=== PATIENT | male | born 2000 | race Caucasian/White ===

== ENCOUNTER → 2025-05-07 09:51 | Outpatient (REF) | payer OTHER, SELFPAY | LOC: PAVMRI 09:51 | PROVIDERS: ATTENDING PHYSICIAN Nurse Practitioner Adult Health | DX: Q28.3 Other malformations of cerebral vessels (principal); Z82.49 Family history of ischemic heart disease and other diseases of the circulatory system | CPT/HCPCS: 70553; A9575 ==

== ENCOUNTER → 2025-06-12 16:28 | Outpatient (REF) | payer OTHER, SELFPAY | LOC: RAD 16:28 | PROVIDERS: ATTENDING PHYSICIAN Nurse Practitioner Family | DX: R06.89 Other abnormalities of breathing (principal) | CPT/HCPCS: 71046 ==

== ENCOUNTER → 2025-06-25 20:15 | Outpatient (REF) | payer OTHER, SELFPAY | LOC: MRI 20:15 | PROVIDERS: ATTENDING PHYSICIAN Nurse Practitioner Adult Health | DX: R90.89 Other abnormal findings on diagnostic imaging of central nervous system (principal); Z82.49 Family history of ischemic heart disease and other diseases of the circulatory system | CPT/HCPCS: 70544 ==

== ENCOUNTER 2025-06-28 20:43 | Emergency (ER) | payer OTHER, SELFPAY ==
[2025-06-28 20:49] VITALS: BP 150/67
[2025-06-28 21:07] LABS: Hematocrit 45.0 % (39.0-52.0); Hemoglobin 15.3 g/dL (13.0-18.0); Mean Corp Hgb Conc. 34.0 g/dL (33.0-37.0); Mean Corpuscular Volume 85.4 fL (80.0-94.0); Nucleated Red Blood Cells % 0 % (-); Platelet Count 277 10^3/uL (130-400); Red Cell Dist. Width 12.6 % (11.5-14.5)
[2025-06-28 21:23] LABS: ALT (SGPT) 27 U/L (0-50); AST (SGOT) 32 U/L (17-59); Albumin 4.6 g/dl (3.5-5.0); Alkaline Phosphatase 54 U/L (38-126); Blood Urea Nitrogen 15 mg/dl (9-20); Calcium 9.3 mg/dl (8.4-10.2); Carbon Dioxide 27 mmol/L (22-30); Chloride 101 mmol/L (98-107); Glucose 106 mg/dl (70-99); Potassium 4.1 mmol/L (3.5-5.1); Sodium 136 mmol/L (135-145); Total Protein 8.0 g/dl (6.3-8.2); eGFR > 60.00
[2025-06-28 21:36] LABS: Troponin I 0.012 ng/ml
[2025-06-28 22:18] VITALS: BMI 35.0
[2025-06-28 22:20] VITALS: BP 111/51
[2025-06-28] MEDS: NSS 500 IV (22:27)
[2025-06-29 00:20] VITALS: BP 130/63
--- NOTE | 2025-06-29 01:13 | ED.GENMED ---
History of Present Illness
General
Chief Complaint: Dizziness
Time Seen by Provider: 06/28/25 21:47
History of Present Illness
History of Present Illness:
Eliseo is a 24-year-old male with no past medical history who presents after having 4 whiskey drinks and taking a marijuana edible and began to feel lightheaded and dizzy with movements. Brought in by his parents as they were concerned. Patient
reports that symptoms resolved as he sat in the car and he is currently feeling at his normal baseline. Denies any headaches, nausea, vomiting, current dizziness.
Past History
Past History
ED Past Medical History: None
ED Past Surgical History: Other (teeth extraction)
Social History
Tobacco: Non-smoker
Drug: Marijuana
Phy Exam
General Physical Exam
General Presentation: well appearing and no apparent distress
General Skin: warm and dry
General Habitus: normal
General Mental: alert
General Hydration: appears well hydrated
ENT Exam
ENT Exam: EOMI, pharynx normal, neck supple and normocephalic
Eye Exam
Eye Exam: PERRL, cornea clear and conjunctiva normal
Cardiovascular Exam
Cardiovascular Exam: regular rate/rhythm, no edema, no murmur and normal peripheral pulses
Pulmonary Exam
Pulmonary Exam: lungs clear, no respiratory distress, no rales, no crackles, no rhonchi, no stridor, no wheezing and no cough
Gastrointestinal Exam
Gastrointestinal Exam: normal bowel sounds, non tender, soft, no organomegaly, no pulsatile mass and non distended
Neurological Exam
Neurological Exam: alert, oriented x3, no motor deficits and speech normal
Musculoskeletal Exam
Musculoskeletal Exam: full ROM and no edema
Skin Exam
Skin Exam: normal color, warm/dry, no rash and no petechia
Psychiatric Exam
Psychiatric Exam: normal mood/affect
Course
Orders/Labs/Results
Orders:
Orders
06/28/25 20:52
ECG [Electrocardiogram (*1)] Urgent
Reason for Study: Syncope
EKG- Treatment ONCE
06/28/25 21:00
Complete Blood Count/With Diff Urgent
Comprehensive Metabolic Panel Urgent
Troponin I Urgent
06/28/25 22:00
0.9% Sodium Chloride 500 ml [Nss] 500 ml IV BOLUS
Abnormal Lab Results
06/28/25
21:00
Absolute Monos (auto) 0.9 H 10^3/uL
(0.1-0.6)
Monocytes % 10.1 H %
(1.7-9.3)
Glucose 106 H mg/dl
(70-99)
06/28/25 21:00
06/28/25 21:00
Vital Signs
Initial and Last Documented VS:
Initial Vital Signs
Temp Pulse Resp BP Pulse Ox
36.6 C 73 16 150/67 100
06/28/25 20:49 06/28/25 20:49 06/28/25 20:49 06/28/25 20:49 06/28/25 20:49
Last Documented Vital Signs
Temp Pulse Resp BP Pulse Ox
36.8 C 73 18 130/63 95
06/28/25 22:20 06/29/25 00:20 06/29/25 00:20 06/29/25 00:20 06/29/25 00:20
MDM/Problems Addressed
Differential Diagnosis Includes:
EKG obtained and normal sinus rhythm. Patient given IV fluid bolus and reports he is feeling better than when he arrived. At baseline. Symptoms are likely related to alcohol use and marijuana use together. Patient reports that he does typically
drink alcohol and use marijuana together however he drank more alcohol than usual tonight. Discussed importance of staying well-hydrated and avoiding polypharmacy. Will discharge patient home. Return precautions discussed.
*Pulse Oximetry
SaO2: 95
Oxygen Mode of Delivery: Room air
Patient hypoxic: no
*Critical Care Note
Total Time (30-74mins, 75-104mins- exclusive of procedures): Not Applicable
ED Attending Note
-
Portions of this chart may have been created with voice recognition software.� Occasional wrong word or��sound alike� substitutions may have occurred due to the inherent limitations of voice recognition software.
Discharge Plan
Departure
Patient Disposition: Home (Routine Discharge)
Date of Disposition: 06/28/25
Time of Disposition: 23:43
Patient with high blood pressure during this ER visit?: No
Discharge Problem:
Vasovagal episode, Intoxication
Prescriptions:
No Action
hydrocodone-acetaminophen 1 TABLET tablet
1 tab PO Q4HPRN PRN (Reason: severe pain) Qty: 8 0RF
ibuprofen [Advil] 200 MG tablet
600 mg PO PRN PRN (Reason: pain)
Referrals:
Mariya Olguin CRNP [Family Provider, Internal Medicine]
Activity Restrictions/Additional Instructions:
Your lab work and EKG obtained in the emergency department was all within normal limits. Symptoms were likely related to alcohol intoxication and marijuana use. Continue to stay well-hydrated. Return to the ER if your dizziness returns, or you
develop any severe headaches, nausea or vomiting that does not improve with supportive care.
Interventions
Interventions:
*General Assessment Last Done: 06/28/25 22:19
*Neglect/Abuse Screening Last Done: 06/28/25 22:19
*ED COVID-19 Vaccine History Last Done: 06/28/25 22:19
*ED Influenza Vaccine History Last Done: 06/28/25 22:19
*Risk Screen - Suicide (C-SSRS) Last Done: 06/28/25 22:19
*Nursing Disposition Last Done: 06/29/25 00:21
ED- Neurological Assessment Last Done: 06/28/25 22:20
ED- Cardiac Assessment Last Done: 06/28/25 22:20
Discharge Date and Time
Discharge Date/Time: 06/29/25 00:22
Print Language: BURKINAN
== END 2025-06-29 00:22 | disposition home or self-care (01) ==
LOC: EMR 20:43
PROVIDERS: Emergency Medicine; EMERGENCY PHYSICIAN Student in an Organized Health Care Education/Training Program; FAMILY PHYSICIAN Nurse Practitioner Adult Health
DX: R55 Syncope and collapse (principal); F10.129 Alcohol abuse with intoxication, unspecified; F12.90 Cannabis use, unspecified, uncomplicated
CPT/HCPCS: 96360; 96361; 99284; 80053; 84484; 85025; 93005